=== PATIENT | male | born 1940 | race Caucasian/White ===

== ENCOUNTER → 2019-06-14 06:31 | Outpatient (CLI) | payer MEDICARE, OTHER, SELFPAY ==
[2019-05-19 15:10] VITALS: BMI 33.1
--- NOTE | 2019-06-14 06:31 | ECHOD_ITS ---
Reason For Study: CAD Procedure This was a 2D Doppler, Color Flow transthoracic echocardiogram. The study was technically difficult. Contrast injection was performed. Exam performed in department. Left Ventricle Normal LV size. Segmental dysfunction with preserved ejection fraction (see wall motion). The estimated ejection fraction is 55 %. No evidence for diastolic dysfunction. Lateral-Basal: Hypokinetic. Posterior-Basal: Hypokinetic. Infero-Basal: Hypokinetic. Right Ventricle Normal RV size. Normal systolic function. Atria The left atrium is mildly enlarged. Normal right atrium. No doppler evidence for ASD. Mitral Valve There is no mitral annular calcification. Normal mitral valve. Mild (1+) mitral valve insufficiency. Tricuspid Valve Normal tricuspid valve. Mild tricuspid valve insufficiency. Right ventricular systolic pressure estimated to be 28 mmHg. Aortic Valve Trisinus/trileaflet aortic valve. Mild focal aortic valve calcification. Pulmonic Valve The pulmonic valve is not well visualized. Mild (1+) pulmonic valve insufficiency. Great Vessels Normal sized aortic root. Pericardium/Pleural No pericardial effusion. Medication Diluted definity 3.0ml given slow IV push to enhance endocardial definition. MMode/2D Measurements & Calculations LVIDd: 5.4 cm IVSd: 1.2 cm Ao root diam: 3.5 cm LVIDs: 4.6 cm LVPWd: 1.2 cm RVDd: 3.6 cm FS: 14.6 % LAV(MOD-bp): 58.7 ml LVAd ap4: 36.4 cm2 SV(MOD-sp4): 65.9 ml LAV(MOD-bp) Indexed: 27.1 ml/m2 EDV(MOD-sp4): 130.0 ml LAV(MOD-sp2): 43.8 ml EDV(sp4-el): 135.3 ml LAV(MOD-sp4): 74.6 ml LVAs ap4: 22.5 cm2 ESV(MOD-sp4): 64.2 ml ESV(sp4-el): 68.3 ml EF(MOD-sp4): 50.7 % EF(sp4-el): 49.5 % SV(sp4-el): 67.0 ml LA A4 area: 23.9 cm2 LA dimension(2D): 4.9 cm RA A4 area: 12.6 cm2 Time Measurements MV dec time: 0.46 sec Doppler Measurements & Calculations MV E max phu: 55.7 cm/sec Lat Peak E' Phu: 9.2 cm/sec Med Peak E' Phu: 7.3 cm/sec MV A max phu: 88.7 cm/sec E/E' lat: 6.0 E/E' med: 7.6 MV E/A: 0.63 Ao V2 max: 114.8 cm/sec LV V1 max: 85.4 cm/sec PA V2 max: 111.5 cm/sec Ao max P.3 mmHg LV V1 max P.9 mmHg TR max phu: 250.6 cm/sec TR max P.1 mmHg Interpretation Summary The study was technically difficult. Contrast injection was performed. Segmental dysfunction with preserved ejection fraction (see wall motion). The estimated ejection fraction is 55 %. The left atrium is mildly enlarged. Mild (1+) mitral valve insufficiency. Mild tricuspid valve insufficiency. Mild focal aortic valve calcification. Mild (1+) pulmonic valve insufficiency. Right ventricular systolic pressure estimated to be 28 mmHg. No evidence for diastolic dysfunction. Ordering Physician: Mustapha Elizabeth Referring Physician: CRIS FISHER Performed By: Mona Ortiz, RDCS, RVT
--- NOTE | 2019-06-14 12:53 | STRESSREP_ITS ---
Stress Test Report Date: 06-14-2019 Procedure: Exercise tolerance test/imaging study Indications: Chest pain; CAD; PCI; CABG Consent: Per the patient Procedure: The patient exercised on a Fermin protocol for 6 minutes completing Stage II achieving a peak heart rate of 141 bpm (98 % predicted maximal heart rate) with a peak blood pressure 166/70 mmHg and a peak MET capacity of 7 METs. The baseline ECG demonstrated normal sinus rhythm. The peak exercise ECG demonstrated no obvious ECG changes. There was a rare PVC during exercise and recovery. The functional capacity was considered average. There was no complaint of chest discomfort during exercise or recovery. The examination was discontinued secondary to dyspnea. Impression: 1. Technically adequate (percent predicted maximal heart rate greater than 85%) exercise tolerance test 2. Peak exercise ECG with no obvious ECG changes 3. There was a rare PVC during exercise and recovery 4. Nuclear images pending Myocardial perfusion imaging study: Technique: The patient was injected with 14.1 mCi of technetium 99m Cardiolite and subsequently rest SPECT Cardiolite nuclear imaging was obtained in the horizontal long, vertical long, and short axis views. The patient exercised on a Fermin protocol for 6 minutes completing Stage II achieving a peak heart rate of 141 bpm (98 % predicted maximal heart rate) with a peak blood pressure 166/70 mmHg and a peak MET capacity of 7 METs. The patient was injected with 44.4 mCi of technetium 99m Cardiolite and subsequently stress SPECT Cardiolite nuclear imaging was obtained in the horizontal long, vertical long, and short axis views. A gated Cardiolite study at peak stress was obtained. Interpretation: Rest and stress SPECT Cardiolite nuclear imaging status post realignment, normalization, and attenuation correction, demonstrates the appearance of an area of diminished myocardial perfusion/tracer uptake in portions of the basal lateral segments without significant change between rest and stress. There is end systolic thickening and brightening. The gated Cardiolite study demonstrates myocardial thickening and inward wall motion. The reported LVEF is 59 %. Impression: 1. Rest and stress SPECT Cardiolite nuclear imaging demonstrate myocardial perfusion changes potentially compatible with an area of previous myocardial injury/infarction involving portions of the basal lateral segments with no myocardial perfusion changes considered diagnostic for associated stress-induced myocardial ischemia. 2. The gated Cardiolite study reports an LVEF of 59 %. This note was generated with [employer] software. It may contain incorrect words, spelling, and punctuation that were not noted in checking the note before signing.
== END ==
PROVIDERS: PCP Student in an Organized Health Care Education/Training Program; Referring Provider Internal Medicine Cardiovascular Disease; Visit Provider Internal Medicine Cardiovascular Disease
DX: I25.10 Atherosclerotic heart disease of native coronary artery without angina pectoris (principal); I10 Essential (primary) hypertension; E78.2 Mixed hyperlipidemia; R07.9 Chest pain, unspecified; Z95.1 Presence of aortocoronary bypass graft
CPT/HCPCS: 78452; 93017; 93306; A9500; Q9957; A4216; C8929

== ENCOUNTER → 2020-05-02 09:39 | Outpatient (CLI) | payer MEDICARE, OTHER, SELFPAY ==
[2020-05-02 08:54] VITALS: BMI 33.0
[2020-05-02 10:58] LABS: Anion Gap 6 (5-15); BUN 18 mg/dL (7-18); BUN/Creat Ratio 17.1 RATIO (10-20); Calcium,Total 9.4 mg/dL (8.5-10.1); Chloride 108 mmol/L (98-107); Creatinine, Serum 1.05 mg/dL (0.70-1.30); EST Glomerular Filtration Rate 73 mL/min (>60); Est Glom Filt Rate - Afr Amer 88 mL/min (>60); Glucose 162 mg/dL (74-106); Magnesium 1.9 mg/dL (1.6-2.6); Potassium 4.1 mmol/L (3.5-5.1); Sodium Level 140 mmol/L (136-145); Thyroid Stim Hormone (TSH) 2.58 uIU/mL (0.358-3.74)
[2020-05-02 11:33] LABS: Absolute Lymphocyte Count 2.14 X10^3/uL (0.83-4.51); Absolute Neutrophil Count 3.6 X10^3/uL (2.0-7.7); Basophil# 0.06 X10^3/uL; Basophil% 0.9 % (0-1); Eosinophil# 0.12 X10^3/uL; Eosinophils% 1.8 % (0-5); Hematocrit 41.5 % (40-54); Hemoglobin 13.5 g/dL (13.0-16.5); Lymphocyte # 2.14 X10^3/ul (4.0); Lymphocyte % 32.9 % (19-41); Mean Corp Hgb Conc 32.5 g/dL (32-36); Mean Corpuscular Hgb 31.2 pg (27.0-32.0); Mean Corpuscular Volume 95.8 fL (80-94); Mean Platelet Vol. 12.7 fl (6.2-12.0); Monocyte# 0.61 X10^3/uL; Monocyte% 9.4 % (0-10); NRBC Flagged by Analyzer 0 % (0-5); Neutrophil # 3.56 X10^3/uL (2.7-7.7); Neutrophil % 54.7 % (47-70); Platelet Count 136 K/mm3 (150-450); RBC Distribution Width CV 12.6 % (11.6-14.6); RBC Distribution Width SD 44.7 fl (35.1-43.9); Red Blood Count 4.33 M/mm3 (4.6-6.2); White Blood Count 6.5 K/mm3 (4.4-11.0)
== END ==
PROVIDERS: PCP Student in an Organized Health Care Education/Training Program; Referring Provider Physician Assistant Medical; Visit Provider Physician Assistant Medical
DX: I49.3 Ventricular premature depolarization (principal); E11.9 Type 2 diabetes mellitus without complications
CPT/HCPCS: 36415; 80048; 83735; 84443; 85025

== ENCOUNTER → 2020-05-03 09:32 | Outpatient (CLI) | payer MEDICARE, OTHER, SELFPAY ==
[2020-05-02 08:54] VITALS: BMI 33.0
== END ==
PROVIDERS: PCP Student in an Organized Health Care Education/Training Program; Referring Provider Physician Assistant Medical; Visit Provider Physician Assistant Medical
DX: I49.3 Ventricular premature depolarization (principal)
CPT/HCPCS: 93225; 93226

== ENCOUNTER → 2020-06-19 09:34 | Outpatient (CLI) | payer MEDICARE, OTHER, SELFPAY ==
[2020-05-02 08:54] VITALS: BMI 33.0
== END ==
PROVIDERS: PCP Student in an Organized Health Care Education/Training Program; Referring Provider Physician Assistant Medical; Visit Provider Physician Assistant Medical
DX: I25.10 Atherosclerotic heart disease of native coronary artery without angina pectoris (principal); I49.3 Ventricular premature depolarization
CPT/HCPCS: 93225; 93226

== ENCOUNTER → 2020-07-05 09:25 | Outpatient (CLI) | payer MEDICARE, OTHER, SELFPAY ==
[2020-05-02 08:54] VITALS: BMI 33.0
--- NOTE | 2020-07-05 09:26 | ECHOD_ITS ---
Reason For Study: DYSPNEA Procedure This was a 2D Doppler, Color Flow transthoracic echocardiogram. The study was technically difficult. Exam performed in department. Left Ventricle Normal LV size. Left ventricular systolic function is normal. The estimated ejection fraction is 55 %. No evidence for diastolic dysfunction. No regional wall motion abnormalities noted. Right Ventricle Normal RV size. Normal systolic function. Atria The left atrium is mildly enlarged. Normal right atrium. No doppler evidence for ASD. Mitral Valve There is mild mitral annular calcification. Mild focal mitral valve calcification of the anterior leaflet. Mild-Moderate (1-2+) mitral valve insufficiency. Tricuspid Valve Normal tricuspid valve. Trivial tricuspid valve insufficiency. Right ventricular systolic pressure estimated to be 33 mmHg. Aortic Valve Trisinus/trileaflet aortic valve. Mild focal aortic valve calcification. Pulmonic Valve The pulmonic valve is not well visualized. Trivial pulmonic valve insufficiency. Great Vessels Normal sized aortic root. Pericardium/Pleural No pericardial effusion. MMode/2D Measurements & Calculations LVIDd: 5.3 cm IVSd: 0.91 cm Ao root diam: 3.5 cm LVIDs: 4.0 cm LVPWd: 0.86 cm RVDd: 4.1 cm FS: 24.4 % LAV(MOD-bp): 63.0 ml LA A4 area: 17.6 cm2 LA dimension(2D): 5.1 cm LAV(MOD-bp) Indexed: 29.1 ml/m2 LAV(MOD-sp2): 77.4 ml LAV(MOD-sp4): 41.8 ml RA A4 area: 14.7 cm2 Time Measurements MV dec time: 0.21 sec Doppler Measurements & Calculations MV E max phu: 75.6 cm/sec Lat Peak E' Phu: 7.3 cm/sec Med Peak E' Phu: 5.9 cm/sec MV A max phu: 88.9 cm/sec E/E' lat: 10.4 E/E' med: 12.7 MV E/A: 0.85 Ao V2 max: 106.8 cm/sec LV V1 max: 67.4 cm/sec PA V2 max: 95.1 cm/sec Ao max P.6 mmHg LV V1 max P.8 mmHg PI end-d phu: 54.8 cm/sec TR max phu: 272.6 cm/sec TR max P.7 mmHg Interpretation Summary The study was technically difficult. Left ventricular systolic function is normal. The estimated ejection fraction is 55 %. The left atrium is mildly enlarged. There is mild mitral annular calcification. Mild focal mitral valve calcification of the anterior leaflet. Mild-Moderate (1-2+) mitral valve insufficiency. Trivial tricuspid valve insufficiency. Mild focal aortic valve calcification. Trivial pulmonic valve insufficiency. Right ventricular systolic pressure estimated to be 33 mmHg. No evidence for diastolic dysfunction. Ordering Physician: Uma Orona Referring Physician: CRIS MARTÍNEZ Performed By: Mona Ortiz, ELIGIO, RVT
== END ==
PROVIDERS: PCP Student in an Organized Health Care Education/Training Program; Referring Provider Physician Assistant Medical; Visit Provider Physician Assistant Medical
DX: I49.3 Ventricular premature depolarization (principal)
CPT/HCPCS: 93306

== ENCOUNTER → 2021-01-17 | Outpatient (CLI) | payer MEDICARE, OTHER, SELFPAY | END | disposition home or self-care (01) | LOC: LABSPEC 01-18 11:33 | PROVIDERS: PCP Student in an Organized Health Care Education/Training Program; Visit Provider Physician Assistant | DX: U07.1 COVID-19 (principal) | CPT/HCPCS: 87635; U0005; U0003 ==

== ENCOUNTER 2024-01-13 12:05 | Emergency (ER) | payer SELFPAY ==
[2024-01-13 12:06] VITALS: BP 121/90; PULSE 81; RESP 16; TEMP 36.6; O2SAT 98; BMI 31.4
--- NOTE | 2024-01-13 12:36 | EX.ED.DYSGE1 ---
HPI History of Present Illness Chief Complaint: Med Refill Detail of Chief Complaint: Visiting from [place] lost luggage and medication Onset/Context/Timing Onset: Today Narrative Narrative: Patient is an 83-year-old male. He is scheduled have a 15-day trip with his in [place]. Their luggage was lost. All of his medications were in his luggage. He presents now for prescription refill. He has no complaints Prior similar symptoms: No Recent Illness/Hospitalization: No PFSH PFSH Medical History Encounter for screening for COVID-19 Lab test negative for COVID-19 virus Asymptomatic PVCs Type 2 diabetes mellitus Mixed hyperlipidemia Renal cyst Prostate carcinoma Essential hypertension GERD (gastroesophageal reflux disease) IBRAHIMA on CPAP Atherosclerotic heart disease of [place] coronary artery without angina pectoris Home Medications ?Medication ?Instructions ?Recorded ?Last Taken ?Type aspirin 81 mg tablet,delayed 81 mg PO DAILY 05/17/19 Unknown History release (Adult Low Dose Aspirin) dulaglutide 0.75 mg/0.5 mL 0.75 mg subcut QWEEK 05/17/19 Unknown History subcutaneous pen injector (Trulicity) pantoprazole 20 mg tablet,delayed 20 mg PO DAILY 05/17/19 Unknown History release atorvastatin 80 mg tablet 80 mg PO QHS 05/19/19 Unknown History cholecalciferol (vitamin D3) 25 25 mcg PO DAILY 05/02/20 Unknown History mcg (1,000 unit) tablet glipizide 10 mg tablet 10 mg PO BID 05/02/20 Unknown History turmeric root extract 500 mg 500 mg PO DAILY 05/02/20 Unknown History capsule metformin 500 mg tablet,extended 1,000 mg PO BID 03/11/21 Unknown History release 24 hr metoprolol succinate 100 mg 100 mg PO DAILY 03/11/21 Unknown History tablet,extended release 24 hr flash glucose sensor (FreeStyle #1 ea 01/13/24 Unknown Rx Ish 2 Sensor kit) insulin degludec 200 unit/mL (3 20 unit (0.1 mL) subcut DAILY #9 mL 01/13/24 Unknown Rx mL) subcutaneous pen (Tresiba FlexTouch U-200 insulin) semaglutide 0.25 mg or 0.5 mg (2 0.5 mg (0.374 mL) subcut QWEEK 01/13/24 Unknown Rx mg/1.5 mL) subcutaneous pen #1.5 mL injector (Ozempic) sitagliptin phosphate 50 1 tab PO BID #14 tabs 01/13/24 Unknown Rx mg-metformin 1,000 mg tablet (Janumet) Allergy/AdvReac Type Severity Reaction Status Date / Time ezetimibe (From Zetia) AdvReac Cough, Verified 01/13/24 12:07 Tinnitus Family History Mother Diabetes Father CAD (coronary artery disease) Brother Cancer Prostate Surgical History History of bladder surgery History of prostatectomy History of cystoscopy History of coronary artery bypass surgery (~1998) Social History (Updated 01/13/24 @ 12:[address] Immanuel Hunt MD) household members: spouse Smoking Status: Former smoker how long ago did patient quit smokinyears ago alcohol intake: current alcohol intake frequency: holidays/special occasions only substance use type: does not use caffeine: Yes Type: coffee Number of servings: 3 ROS ROS ED Cardiovascular Cardiovascular: Reports chest pain Respiratory/Chest Respiratory/Chest: Reports dyspnea Hematologic/Lymphatic Hematologic/Lymphatic: Reports easy bleeding and easy bruising EXAM Physical Exam Const Vital Signs: 01/13/24 12:05 01/13/24 12:06 Temperature 97.8 F Temperature Source Temporal Pulse Rate 81 Respiratory Rate 16 Respiratory Effort Normal Respiratory Pattern Normal Blood Pressure 121/90 H Blood Pressure Mean 100 Pulse Ox 98 Oxygen Delivery Method Room Air Positive well nourished and well developed General Appearance ED: well developed and NAD; Negative for pallor HEENT HEENT Narrative: Atraumatic normocephalic. Eyes PERRL and EOMs intact bilaterally General Eye ED: Negative for scleral icterus Resp normal respiratory effort Cardio regular rate and regular rhythm Neuro oriented x3 and CN's II-XII intact bilaterally Sensorium / Orientation: alert Psych mental status grossly normal Skin no wounds General Skin Exam: Negative for jaundice or pallor MDM MDM MDM Narrative Medical decision making narrative: Patient presents for prescription refill. Discharge Plan Triage Chief Complaint: Med Refill ED Provider: Immanuel Hunt Dx/Rx/DC Orders Clinical Impression: Encounter for medical screening examination, Medication refill Instructions: ED Screening Exam Medical Nonurgent Prescriptions: New insulin degludec [Tresiba FlexTouch U-200] 200 unit/mL (3 mL) insulin pen 20 unit subcut DAILY Qty: 9 0RF (DME) FreeStyle Ish 2 Sensor Kit See Rx Instructions .Route Qty: 1 0RF Rx Instructions: As directed Janumet 50-1,000 mg tablet 1 tab PO BID Qty: 14 0RF Ozempic 0.25 mg or 0.5 mg(2 mg/1.5 mL) pen injector 0.5 mg subcut QWEEK Qty: 1.5 0RF Rx Instructions: for 4 weeks No Action atorvastatin 80 mg tablet 80 mg PO QHS Trulicity 0.75 mg/0.5 mL pen injector 0.75 mg SC QWEEK pantoprazole 20 mg tablet,delayed release (DR/EC) 20 mg PO DAILY aspirin [Adult Low Dose Aspirin] 81 mg tablet,delayed release (DR/EC) 81 mg PO DAILY glipizide 10 mg tablet 10 mg PO BID cholecalciferol (vitamin D3) 25 mcg (1,000 unit) tablet 25 mcg PO DAILY turmeric root extract 500 mg capsule 500 mg PO DAILY metformin 500 mg tablet extended release 24 hr 1,000 mg PO BID metoprolol succinate 100 mg tablet extended release 24 hr 100 mg PO DAILY Primary Care Provider: [facility] Doctor,Out of Referrals: [facility] Doctor,Out of [Primary Care Provider] - Print Language: Salvadorean Disposition Disposition: Home, Self Care
== END 2024-01-13 13:51 | disposition home or self-care (01) ==
PROVIDERS: Emergency Provider Emergency Medicine; Referring Provider Emergency Medicine; Visit Provider Emergency Medicine
DX: Z76.0 Encounter for issue of repeat prescription (principal); E11.9 Type 2 diabetes mellitus without complications; I25.10 Atherosclerotic heart disease of native coronary artery without angina pectoris; G47.33 Obstructive sleep apnea (adult) (pediatric); Z87.891 Personal history of nicotine dependence
CPT/HCPCS: 99282